=== PATIENT | male | born 1975 | race Caucasian/White ===

== ENCOUNTER 2023-11-13 13:39 | Emergency (ER) | payer SELFPAY ==
[~2023-11-13] VITALS: Ht 190.5 cm; Wt 100.0 kg
[2023-11-13 13:40] VITALS: TEMP 98.5
[2023-11-13] MEDS ORDERED: NORCO 325 MG-51 TAB PO (15:01)
[2023-11-13 15:30] VITALS: BP 149/98; PULSE 88
== END 2023-11-13 15:33 | disposition home or self-care (01) ==
LOC: COL.ER 13:39
DX: S42.032A Displaced fracture of lateral end of left clavicle, initial encounter for closed fracture (principal); Z87.891 Personal history of nicotine dependence; W01.0XXA Fall on same level from slipping, tripping and stumbling without subsequent striking against object, initial encounter
CPT/HCPCS: J2270; J3010; J7030